=== PATIENT | male | born 1945 | race American Indian/Alaskan Native ===

== ENCOUNTER 2018-06-06 12:39 | Day surgery (SDC) | payer MEDICARE ==
[~2018-06-06 12:39] MED LIST: ANCEF/STERILE WATER 2 GM/20 ML IV NR
[2018-06-06] MEDS ORDERED: LACTATED RINGERS 1,000 ML IV SCH (13:34)
[2018-06-06] MEDS ORDERED: ZOFRAN IV PRN (13:47)
[2018-06-06] MEDS ORDERED: SUBLIMAZE IV PRN (13:47)
--- NOTE | 2018-06-06 13:49 | Anesthesia Day of Surgery ---
Anesthesia Day of Surgery - Day of Surgery Patient Examined: Yes Patient H&P Reviewed: Yes Patient is NPO: Yes
--- NOTE | 2018-06-06 13:50 | Anesthesia Consultation ---
Anesthesia Consult and Med Hx Date of service: 06/06/18 - Airway Anesthetic Teeth Evaluation: Good ROM Head & Neck: Adequate Mental/Hyoid Distance: Adequate Mallampati Class: Class II Intubation Access Assessment: Good - Pre-Operative Health Status ASA Pre-Surgery Classification: ASA2 Proposed Anesthetic Plan: General - Pulmonary Hx Smoking: Yes (STOPPED 2016- 1PPD X 40 YRS) Hx Sleep Apnea: No (NIGEL PRE SCREEN LOW RISK.) - Cardiovascular System Hx Hypertension: No - Central Nervous System Hx Psychiatric Problems: No - Endocrine Hx Liver Disease: Yes (History of Hep B in the 70's) - Hematic Hx Anemia: Yes (VIT B12 Q MONTH) - Other Systems Hx Alcohol Use: Yes (WINE QD) 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
[2018-06-06] MEDS ORDERED: NEURONTIN PO NR (14:00)
[2018-06-06] MEDS ORDERED: TYLENOL PO NR (14:00)
[2018-06-06] MEDS ORDERED: FLUSH HEPARIN IV ONE (14:30)
[2018-06-06] MEDS ORDERED: FLUSH HEPARIN IV SCH (14:40)
[2018-06-06] MEDS ORDERED: DIPRIVAN 10 MG/ML IV ONE (15:08)
[2018-06-06] MEDS ORDERED: DILAUDID ONE (15:08)
[2018-06-06] MEDS ORDERED: XYLOCAINE MPF 2% ONE (15:09)
--- NOTE | 2018-06-06 16:03 | Short Stay Summary ---
Short Stay Documentation Date of service: 06/06/18 - History H&P: obtained from office - Allergies and Medications Current Medications: Allergies dexamethasone Adverse Reaction (Verified 06/04/18 17:17) PROLONG HICCUPS Home Medications Medication Instructions Recorded Confirmed Last Taken Type Cyanocobalamin (Vitamin B-12) 1,000 mcg IJ QMONTH 08/22/13 06/06/18 05/08/18 History [Physicians Ez Use B-12] Active Medications Acetaminophen (Tylenol) 650 mg PO PREOP NR Stop: 06/06/18 23:59 Last Admin: 06/06/18 14:43 Dose: 650 mg Documented by: Cefazolin Sodium (Ancef/Sterile Water 2 Gm/20 Ml) 2 gm IV PREOP NR Stop: 06/06/18 23:00 Celecoxib (Celebrex) 200 mg PO PREOP NR Stop: 06/06/18 23:59 Last Admin: 06/06/18 14:43 Dose: 200 mg Documented by: Fentanyl (Sublimaze) 50 mcg IV Q5MIN PRN PRN Reason: Pain , Severe (7-10) Stop: 06/06/18 23:59 Gabapentin (Neurontin) 300 mg PO PREOP NR Stop: 06/06/18 23:59 Last Admin: 06/06/18 14:43 Dose: 300 mg Documented by: Heparin Sodium (Porcine) (Flush Heparin) 200 unit IV ONCE RINA Stop: 06/06/18 23:59 Last Admin: 06/06/18 14:40 Dose: 200 unit Documented by: Lactated Ringer's (Lactated Ringers) 1,000 mls @ 100 mls/hr IV DIRECT RINA Last Admin: 06/06/18 14:35 Dose: 100 mls/hr Documented by: Ondansetron HCl (Zofran) 4 mg IV ONCE PRN PRN Reason: Nausea And Vomiting - Brief post op/procedure progress note Date of procedure: 06/06/18 Pre-op diagnosis: scrotal mass Post-op diagnosis: same Procedure: cysto, excision of scrotal mass Anesthesia: HALIMAA Surgeon: LUPILLO HI Estimated blood loss: minimal Pathology: list (scrotal mass) Specimen disposition: to lab Condition: stable - Hospital course Hospital course: elida on chart - Disposition Condition at discharge: Stable Disposition: - TO HOME OR SELFCARE Short Stay Discharge Plan Follow up with: MATEO HAMILTON MD [Primary Care Provider] - 7 Days
[2018-06-06] MEDS ORDERED: ZOFRAN ONE (16:05)
[2018-06-06 18:39] VITALS: BP 115/58
--- NOTE | 2018-06-06 20:00 | Operative Report ---
PREOPERATIVE DIAGNOSES: Scrotal mass, benign prostatic hypertrophy. POSTOPERATIVE DIAGNOSES: Scrotal mass, benign prostatic hypertrophy. PROCEDURE: Cystoscopy, excision of scrotal mass. SURGEON: Timmy Clifton MD ANESTHESIA: General. ESTIMATED BLOOD LOSS: Minimal. FLUIDS: Crystalloid. COMPLICATIONS: No complications. INDICATIONS: This patient is a 73-year-old gentleman who has been seen in the office. In the past, he had a history of rectal cancer, status post chemo and radiation. 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 Tinoco, presents now for another mass just to the right of this midline and the scrotum by approximately 1 cm. He does have some mild prostatism. DESCRIPTION OF PROCEDURE: The patient was taken to the operative suite, placed in a supine position after adequate general anesthesia, placed in a dorsal lithotomy position, prepped and draped in a sterile fashion. Pancystourethroscopy was performed with a 22-[place] Storz cystoscope, no urethral abnormalities. His prostate displayed some mild trilobar obstruction, his bladder, no tumors or stones. Both ureteral orifices were in normal position. Bladder was drained. Next, attention was taken to the scrotum just to the right of the median raphe, sees 1 cm mass in the subcutaneous tissue. It was marked with a pen and excised the mass and skin covering the mass was excised without difficulty and sent for routine pathologic evaluation. Copious irrigation was performed. Adequate hemostasis achieved. Subcutaneous tissue was closed with 2-0 Vicryl in an interrupted fashion. Skin was closed with 2-0 Vicryl in interrupted fashion. Fluffs and mesh pants were placed. The patient tolerated the procedure well. Rectal examination was benign. He was extubated. He will go home on [place] and [place] and follow up in the office. JOB# [id number] YOSVANY/THIERRY
== END 2018-06-06 12:40 | disposition home or self-care (01) ==
LOC: OR 12:39 → EDSEX 16:30
PROVIDERS: ATTEND Urology
DX: C63.2 Malignant neoplasm of scrotum (principal); N40.0 Benign prostatic hyperplasia without lower urinary tract symptoms; N50.89 Other specified disorders of the male genital organs; K21.9 Gastro-esophageal reflux disease without esophagitis; M19.90 Unspecified osteoarthritis, unspecified site; Z72.89 Other problems related to lifestyle; Z87.891 Personal history of nicotine dependence; Z79.899 Other long term (current) drug therapy; Z98.42 Cataract extraction status, left eye; Z98.41 Cataract extraction status, right eye; Z86.2 Personal history of diseases of the blood and blood-forming organs and certain disorders involving the immune mechanism; Z88.8 Allergy status to other drugs, medicaments and biological substances; Z85.048 Personal history of other malignant neoplasm of rectum, rectosigmoid junction, and anus
CPT/HCPCS: 11621; 88307; 88341; 88342; J0690; J1170; J1642; J2405; J2704; J7120